=== PATIENT | female | born 1960 | race Caucasian/White ===

== ENCOUNTER 2019-02-22 15:49 | Emergency (ER) | payer MEDICAID ==
[~2019-02-22] VITALS: Ht 152.4 cm; Wt 69.9 kg
[2019-02-22 15:59] VITALS: BP 156/51; Ht 152.4 cm; Wt 69.9 kg
[2019-02-22 19:26] LABS: UA SPECIFIC GRAVITY <=1.005 (1.005-1.035); microscopic required? YES; urine erythrocyte 2+ (NEGATIVE)
== END 2019-02-22 17:58 | disposition home or self-care (01) ==
LOC: ED 15:49
PROVIDERS: Emergency Medicine
DX: N39.0 Urinary tract infection, site not specified (principal)
CPT/HCPCS: 87491; 87591

== ENCOUNTER 2019-03-08 11:59 | Emergency (ER) | payer MEDICAID ==
[~2019-03-08] VITALS: Ht 157.5 cm; Wt 76.2 kg
[2019-03-08 12:12] VITALS: Ht 157.5 cm; Wt 76.2 kg
[2019-03-08 12:50] LABS: BASOPHIL % 0.1 % (0-2); PLATELET COUNT 246 x10^3mcL (130-400); RED CELL DISTRIBUTION WIDTH 13.7 % (11.5-14.5)
[2019-03-08 13:11] LABS: CALCIUM 9.4 mg/dL (8.5-10.1); CARBON DIOXIDE 26.6 mmol/L (21-32); CHLORIDE SERUM 103 mmol/L (98-107); CREATININE SERUM 0.8 mg/dL (0.6-1.0); GFR1 > 60 mL/min; GLUCOSE SERUM 131 mg/dL (74-106); SODIUM SERUM 136 mmol/L (136-145)
[2019-03-08 13:15] LABS: UA SPECIFIC GRAVITY 1.015 (1.005-1.035); microscopic required? YES; urine erythrocyte 1+ (NEGATIVE)
[2019-03-08 13:16] LABS: ALBUMIN 4.3 g/dL (3.4-5.0); ALKALINE PHOSPHATASE 92 U/L (46-116); ALT/SGPT 30 U/L (14-59); AST/SGOT 21 U/L (15-37); BILIRUBIN TOTAL 0.3 mg/dL (0.20-1.00); LIPASE 123 IU/L (73-393)
[2019-03-08 13:19] LABS: TOTAL PROTEIN, SERUM 8.7 g/dL (6.4-8.2)
[2019-03-08 15:46] VITALS: BP 148/67
== END 2019-03-08 15:46 | disposition home or self-care (01) ==
LOC: ED 11:59
PROVIDERS: Emergency Medicine
DX: R10.32 Left lower quadrant pain (principal); G47.00 Insomnia, unspecified; K80.20 Calculus of gallbladder without cholecystitis without obstruction
CPT/HCPCS: J1885; J2405; J7030

== ENCOUNTER 2019-03-11 13:26 | Emergency (ER) | payer MEDICAID ==
[~2019-03-11] VITALS: Ht 154.9 cm; Wt 68.9 kg
[2019-03-11 13:32] VITALS: BP 142/77; Ht 154.9 cm; Wt 68.9 kg
== END 2019-03-11 14:36 | disposition home or self-care (01) ==
LOC: ED 13:26
DX: F32.9 Major depressive disorder, single episode, unspecified (principal); G47.00 Insomnia, unspecified